=== PATIENT | female | born 1990 | race Caucasian/White ===

== ENCOUNTER 2018-12-18 18:45 | Inpatient (IN) | payer BC ==
[2018-12-18 20:58] VITALS: BMI 21.4
[2018-12-18 21:16] LABS: BASO % 0.2 % (0-2.0); EOS % 0.1 % (0-4.5); HEMATOCRIT 34.7 % (32.4-45.2); HEMOGLOBIN 11.8 GM/dL (10.7-15.3); LYMPH % 12.7 % (8-40); MCH 34.8 pg (25.7-33.7); MEAN CELL VOLUME 102.3 fl (80-96); MEAN PLT VOLUME 8.9 fl (7.5-11.1); MONO % 4.8 % (3.8-10.2); NEUT % 82.2 % (42.8-82.8); PLATELET COUNT 176 K/MM3 (134-434); RBC 3.39 M/mm3 (3.60-5.2); RDW 13.7 % (11.6-15.6); WHITE BLOOD COUNT 8.8 K/mm3 (4.0-10.0)
[2018-12-18 21:29] LABS: INR 0.95 (0.83-1.09); PROTHROMBIN TIME (PATIENT) 11.2 SEC (9.7-13.0)
[2018-12-18 21:32] LABS: ACTIVATED PTT 27.4 SECONDS (25.2-36.5)
[2018-12-18 21:38] LABS: BLOOD UREA NITROGEN 6.8 mg/dL (7-18); CALCIUM 8.6 mg/dL (8.5-10.1); CREATININE 0.7 mg/dL (0.55-1.3); POTASSIUM 3.6 mmol/L (3.5-5.1)
--- NOTE | 2018-12-18 21:59 | HP ---
Past Medical History - Primary Care Physician PCP:: Hong Montes De Oca - Admission Chief Complaint: 28yo P1 with at EGA 40w2d admitted with SROM in spontaneous labor. History of Present Illness: SROM with clear fluid. Vaginal GBS negative. History Source: Patient, Medical Record Limitations to Obtaining History: No Limitations - Past Medical History BLENDING TECHNICIAN: Yes: Migraine Cardiovascular: No: AFIB, Aneurysm, Aortic Insufficiency, Aortic Stenosis, CAD, CHF, Deep Vein Thrombosis, HTN, Hyperlipdemia, OR, Mitral Insufficiency, Mitral Stenosis, Murmur, Pulmonary Hypertension, Other Pulmonary: No: Asthma, Bronchitis, Cancer, COPD, O2 Dependent, Pneumonia, Previously Intubated, Pulmonary Embolus, Pulmonary Fibrosis, Sleep Apnea, Other Gastrointestinal: Yes: GERD, Irritable Bowel Disease Hepatobiliary: No: Cirrhosis, Cholelithiasis, Cholecystitis, Choledocholithiasis , Hepatitis A, Hepatitis B, Hepatitis C, Other Renal/: No: Renal Failure, Renal Inusuff, BPH, Cancer, Hematuria, Hemodialysis , Neurogenic Bladder, Renal Calculi, UTI, Other ...: 2 ...Para: 1 ...Term: 1 ...: 0 ...Spon : 0 ...Induced : 0 ...Multiple Gestation: 0 ...LMP: 03/15/18 ... Weeks Gestation by Dates: 40.2 ...EDC by Dates: 12/20/18 ...EDC by Sono: 12/16/18 Heme/Onc: No: Anemia, B12 Deficiency, Bleeding Disorder, Cancer, Current Chemotherapy, Current Radiation Therapy, Hemochromatosis, Hypercoaguable State, Myeloproliferative Synd, Sickle Cell Disease, Sickle Cell Trait, Thrombocytopenia, Other Infectious Disease: No: AIDS, C-Diff, Herpes Zoster, HIV, MRSA, STD's, Tuberculosis, VREF, Other Psych: No: Addictions, Anxiety, Bipolar, Depression, Panic, Psychosis, Schizophrenia, Other Musculoskeletal: No: Bursitis, Chronic low back pain, Hemiparesis, Hemiplegia, Osteoarthritis, Paraplegia, Other Rheumatology: No: Fibromyalgia, Gout, Lupus, Rheumatoid Arthritis, Sarcoidosis, Vasculitis, Other ENT: No: Allergic Rhinitis, Sinusitis, Other Endocrine: No: Bobby's Disease, [place]'s Disease, Diabetes Insipidus, Diabetes Mellitus, Hyperparathyroidism, Hyperthyroidism, Hypothyroidism, Osteopenia, SIADH, Other Dermatology: No: Basal Cell, Cellulitis, Eczema, Melanoma, Psoriasis, Squamous Cell, Other - Past Surgical History Past Surgical History: Yes: None Hx Myomectomy: No Hx Transabdominal Cerclage: No - Smoking History Smoking history: Never smoked Have you smoked in the past 12 months: No - Alcohol/Substance Use Hx Alcohol Use: No History of Substance Use: reports: None - Social History Usual Living Arrangement: Yes: With Spouse, With Child ADL: Independent History of Recent Travel: No Home Medications - Allergies Allergies/Adverse Reactions: Allergies Allergy/AdvReac Type Severity Reaction Status Date / Time avocado Allergy Verified 12/18/18 20:08 husain flavor Allergy Verified 12/18/18 20:08 nut - unspecified Allergy Verified 12/18/18 20:08 - Home Medications Home Medications: Ambulatory Orders Pnv No.95/Ferrous Fum/Folic AC [ Vitamin Tablet] 1 tab PO DAILY Family Medical History Family History: Unremarkable Review of Systems - Review of Systems Constitutional: reports: Other (contractions mild) Eyes: reports: No Symptoms HENT: reports: No Symptoms Neck: reports: No Symptoms Cardiovascular: reports: No Symptoms Respiratory: reports: No Symptoms Gastrointestinal: reports: No Symptoms Genitourinary: reports: No Symptoms Breasts: reports: No Symptoms Reported Musculoskeletal: reports: No Symptoms Integumentary: reports: No Symptoms Neurological: reports: No Symptoms Endocrine: reports: No Symptoms Hematology/Lymphatic: reports: No Symptoms Psychiatric: reports: No Symptoms Pain Intensity: 2 Physical Exam - Maternity Vital Signs: Vital Signs Temperature 98.3 F 12/18/18 21:11 Pulse Rate 101 H 12/18/18 21:11 Respiratory Rate 20 12/18/18 21:11 Blood Pressure 112/69 12/18/18 21:11 O2 Sat by Pulse Oximetry (%) Constitutional: Yes: Well Nourished, No Distress, Calm Eyes: Yes: WNL, Conjunctiva Clear HENT: Yes: WNL, Atraumatic, Normocephalic Neck: Yes: WNL, Supple, Trachea Midline Cardiovascular: Yes: WNL, Regular Rate and Rhythm Lungs: Clear to auscultation, Normal air movement - Abdominal Exam/OB Fundal Height: 39 Number of Fetuses: Single Presentation: Vertex Contractions: Yes Regularity: Irregular Intensity: Mild Monitor Mode: External Heart Rate (range): 130 Heart Rate Location: Midline Category: I Accelerations: Uniform Decelerations: None - Vaginal Exam/OB Vaginal Bleediing: No Speculum Exam: No Dilatation (cm): 3 Effacement (%): 70 Amniotic Membrane Status: Leaking Nitrazine Test: Positive Amniotic Fluid: Yes: Clear Presentation: Vertex/Position Station: -2 - Physical Exam Musculoskeletal: Yes: WNL Extremities: Yes: WNL Edema: No Integumentary: Yes: WNL Deep Tendon Reflex Grade: Normal +2 ...Motor Strength: WNL Psychiatric: Yes: WNL, Alert, Oriented - Labs Lab Results: CBC, BMP 12/18/18 20:50 12/18/18 20:03 Hemorrhage Risk Assessment - Risk Factors Medium Risk Factors: Yes: None High Risk Factors: Yes: None Risk Score: 1 Risk Level: Medium Risk Imaging - Results Ultrasound: Report Reviewed Assessment/Plan 28yo P1 with at EGA 40w2d admitted with SROM in spontaneous labor. Fetus with Catgery I tracing. Adequate gynecoid pelvimetry. Spont early labor. Contractions are mild and irregular. Plan to augment ctx's with pitocin.
[2018-12-18] MEDS ORDERED: DEXTROSE 5%-LACTATED RINGERS 1,000 ML IV SCH (22:00)
[2018-12-18] MEDS ORDERED: OXYTOCIN 30 UNITS in 0.9% NS 30 UNIT/500 ML INFUS.BAG IVPB ONE (22:12)
[2018-12-18] MEDS ORDERED: ELECTROLYTE-148 SOLN 1,000 ML IV SCH (22:30)
[2018-12-18] MEDS: ELECTROLYTE-148 SOLN 1,000 ML IV SCH (22:30)
[2018-12-18] MEDS ORDERED: OXYTOCIN 30 UNITS in 0.9% NS 30 UNIT/500 ML INFUS.BAG IVPB SCH (22:30)
[2018-12-19] MEDS ORDERED: LIDO 2%/EPI 1:200000 PRESRVFRE (20 ML SDVIAL) ONE
[2018-12-19] MEDS ORDERED: BUPIVACAINE HCL/PF 0.5% (5 MG/ML) 30 ML VIAL IJ ONE
[2018-12-19] MEDS ORDERED: FENTANYL/BUPIVACAINE/NS/PF - PCEA - 50 ML DISP.SYRIN EP ONE (00:04)
[2018-12-19] MEDS ORDERED: NALOXONE HCL 0.4 MG/ML VIAL IVPUSH PRN (00:26)
[2018-12-19] MEDS ORDERED: FENTANYL/BUPIVACAINE/NS/PF - PCEA - 50 ML DISP.SYRIN EP SCH (00:30)
[2018-12-19] MEDS: ELECTROLYTE-148 SOLN 1,000 ML IV SCH (00:40)
[2018-12-19] MEDS ORDERED: OXYTOCIN 20 UNITS in 0.9% NS 20 UNIT/1,000 ML INFUS.BAG IV ONE (01:43)
[2018-12-19] MEDS ORDERED: LIDOCAINE HCL 1% PRESERVATIVE FREE - 30ML VIAL ONE (01:44)
[2018-12-19] MEDS ORDERED: OXYTOCIN 20 UNITS in 0.9% NS 1000 ML INFUS.BAG IV ONE (02:43)
[2018-12-19] MEDS ORDERED: OXYTOCIN 20 UNITS in 0.9% NS 20 UNIT/1,000 ML INFUS.BAG IV SCH (03:00)
[2018-12-19] MEDS ORDERED: ACETAMINOPHEN 325 MG TABLET (FP) PO PRN (03:31)
[2018-12-19] MEDS ORDERED: IBUPROFEN 600 MG TABLET (FP) PO PRN (03:31)
[2018-12-19] MEDS ORDERED: SENNOSIDES/DOCUSATE COMBO (SENNA PLUS) TABLET (UD) PO PRN (03:31)
[2018-12-19] MEDS ORDERED: BENZOCAINE 20% 57 GM BOTTLE TP PRN (03:32)
[2018-12-19] MEDS ORDERED: BISACODYL 10 MG SUPP.RECT RC PRN (03:32)
[2018-12-19] MEDS ORDERED: BENZOCAINE 28 GM HEMORRHOIDAL OINTMENT TP PRN (03:32)
[2018-12-19] MEDS ORDERED: METHYLERGONOVINE MALEATE 0.2 MG/1 ML AMP IM PRN (03:33)
[2018-12-19] MEDS ORDERED: WITCH HAZEL 50% (TUCKS) 40 PAD/JAR PAD TP PRN (03:33)
--- NOTE | 2018-12-19 09:01 | PN ---
Delivery - Delivery Vaginal Delivery: No Problems, Spontaneous Type of Anesthesia: Epidural Episiotomy/Laceration: Vaginal Extension/lac, 1st degree EBL (cc): 350 Delivery, Single - Stages of Labor Date 1st Stage Initiatied: 12/18/18 Time 1st Stage Initiated: 18:00 Date 2nd Stage Initiated: 12/19/18 Time 2nd Stage Initiated: 01:45 Date of Delivery: 12/19/18 Time of Delivery: 01:53 Date Placenta Delivered: 12/19/18 Time Placenta Delivered: 02:00 Placenta: Yes: Spontaneous, Normal Configuration - Condition of Carpet Technician/Typesetting Machine Tender Present: No Gender: Male Weight: 3.005 kg Position: OA Total Hours ROM (Hrs/Mins): [id number] - 1 Minute Total Score: 9 5 Minutes Total Score: 9 - [place] Feeding Plan Initial Plan: Exclusive throughout hospitalization Benefits of Exclusively reinforced: Yes
--- NOTE | 2018-12-20 08:49 | PN ---
Post Progress Note - Subjective Subjective: Patient without acute complaints. Reports tolerating oral intake without nausea or vomiting. Ambulating without dizziness. Denies fevers or chills. Pain well controlled with oral pain medication. without difficulty. Passing flatus. Post Day: 1 Type of Delivery: Vital Signs: Vital Signs Temperature 98.4 F 12/19/18 22:00 Pulse Rate 83 12/19/18 22:00 Respiratory Rate 18 12/19/18 22:00 Blood Pressure 100/59 L 12/19/18 22:00 O2 Sat by Pulse Oximetry (%) 98 12/19/18 02:45 Breast Exam: Yes: Soft Uterus: Yes: Fundus Firm Abdomen/GI: Yes: Abdomen soft, Passing flatus, Tolerating PO Lochia: Yes: Rubra Lochia, amount: Small Extremities: Yes: Calves non-tender Perineum: Yes: Intact Activity: Ambulating - Labs Labs: CBC WBC 8.8 K/mm3 (4.0-10.0) 12/18/18 20:50 RBC 3.39 M/mm3 (3.60-5.2) L 12/18/18 20:50 Hgb 11.8 GM/dL (10.7-15.3) 12/18/18 20:50 Hct 34.7 % (32.4-45.2) D 12/18/18 20:50 MCV 102.3 fl (80-96) H 12/18/18 20:50 MCH 34.8 pg (25.7-33.7) H 12/18/18 20:50 MCHC 34.0 g/dl (32.0-36.0) 12/18/18 20:50 RDW 13.7 % (11.6-15.6) 12/18/18 20:50 Plt Count 176 K/MM3 (134-434) D 12/18/18 20:50 MPV 8.9 fl (7.5-11.1) 12/18/18 20:50 Absolute Neuts (auto) 7.3 K/mm3 (1.5-8.0) 12/18/18 20:50 Neutrophils % 82.2 % (42.8-82.8) 12/18/18 20:50 Lymphocytes % 12.7 % (8-40) 12/18/18 20:50 Monocytes % 4.8 % (3.8-10.2) 12/18/18 20:50 Eosinophils % 0.1 % (0-4.5) 12/18/18 20:50 Basophils % 0.2 % (0-2.0) 12/18/18 20:50 Nucleated RBC % 0 % (0-0) 12/18/18 20:50 Assessment/Plan s/p VSS, Afebrile doing well continue routine care Plan to d/c in am
[2018-12-20 09:22] LABS: BASO % 0.3 % (0-2.0); EOS % 0.7 % (0-4.5); HEMATOCRIT 30.1 % (32.4-45.2); HEMOGLOBIN 10.4 GM/dL (10.7-15.3); LYMPH % 17.3 % (8-40); MCH 35.4 pg (25.7-33.7); MCHC 34.5 g/dl (32.0-36.0); MEAN CELL VOLUME 102.6 fl (80-96); MEAN PLT VOLUME 8.5 fl (7.5-11.1); MONO % 3.1 % (3.8-10.2); NEUT % 78.6 % (42.8-82.8); PLATELET COUNT 135 K/MM3 (134-434); RBC 2.93 M/mm3 (3.60-5.2); RDW 13.8 % (11.6-15.6); WHITE BLOOD COUNT 7.9 K/mm3 (4.0-10.0)
[2018-12-20 23:12] VITALS: TEMP 98
--- NOTE | 2018-12-21 07:39 | PN ---
Post Progress Note - Subjective Subjective: Patient without acute complaints. Reports tolerating oral intake without nausea or vomiting. Ambulating without dizziness. Denies fevers or chills. Pain well controlled with oral pain medication. without difficulty. Passing flatus. Post Day: 2 Type of Delivery: Vital Signs: Vital Signs Temperature 98 F 12/20/18 22:00 Pulse Rate 87 12/20/18 22:00 Respiratory Rate 18 12/20/18 22:00 Blood Pressure 87/56 L 12/20/18 22:00 O2 Sat by Pulse Oximetry (%) 98 12/19/18 02:45 Breast Exam: Yes: Soft Uterus: Yes: Fundus Firm, Fundus below umbilicus Abdomen/GI: Yes: Abdomen soft, Passing flatus, Tolerating PO. No: Abdominal Distention, Tender Extremities: Yes: Calves non-tender. No: Edema Activity: Ambulating - Labs Labs: CBC WBC 7.9 K/mm3 (4.0-10.0) 12/20/18 09:00 RBC 2.93 M/mm3 (3.60-5.2) L 12/20/18 09:00 Hgb 10.4 GM/dL (10.7-15.3) L 12/20/18 09:00 Hct 30.1 % (32.4-45.2) L 12/20/18 09:00 MCV 102.6 fl (80-96) H 12/20/18 09:00 MCH 35.4 pg (25.7-33.7) H 12/20/18 09:00 MCHC 34.5 g/dl (32.0-36.0) 12/20/18 09:00 RDW 13.8 % (11.6-15.6) 12/20/18 09:00 Plt Count 135 K/MM3 (134-434) D 12/20/18 09:00 MPV 8.5 fl (7.5-11.1) 12/20/18 09:00 Absolute Neuts (auto) 6.2 K/mm3 (1.5-8.0) 12/20/18 09:00 Neutrophils % 78.6 % (42.8-82.8) 12/20/18 09:00 Lymphocytes % 17.3 % (8-40) D 12/20/18 09:00 Monocytes % 3.1 % (3.8-10.2) L 12/20/18 09:00 Eosinophils % 0.7 % (0-4.5) D 12/20/18 09:00 Basophils % 0.3 % (0-2.0) 12/20/18 09:00 Nucleated RBC % 0 % (0-0) 12/20/18 09:00 Assessment/Plan 28 yo PPD # 2 s/p , afebrile, vital signs stable, doing well 1. Patient stable for discharge home today. 2. Patient encouraged to contact MD for: - Severe pain not controlled by oral pain medication - Fevers or chills - Nausea or vomiting, intolerance of oral intake 3. Patient to follow up in office in 4-6 weeks for visit
[2018-12-21 09:32] VITALS: BP 107/61; PULSE 81
== END 2018-12-21 10:45 | disposition home or self-care (01) | DRG 807 ==
LOC: JDEL 18:45 → JLDR 19:00 → JDEL 19:04 → UNDOADMIN 19:50 → JLDR 19:50 → J3W 12-19 03:27
PROVIDERS: ADMIT Obstetrics & Gynecology; ATTEND Obstetrics & Gynecology
PROC: 0HQ9XZZ Repair Perineum Skin, External Approach (ICD-10-PCS; principal; 2018-12-19)
PROC: 10E0XZZ Delivery of Products of Conception, External Approach (ICD-10-PCS; 2018-12-19)
DX: O48.0 Post-term pregnancy (principal); Z37.0 Single live birth; O70.0 First degree perineal laceration during delivery; Z3A.40 40 weeks gestation of pregnancy
CPT/HCPCS: 36415; 59409; 80048; 85025; 85610; 85730; 86593; 86850; 86900; 86901; 87389

== ENCOUNTER 2020-01-12 11:38 | Emergency (ER) | payer BC | END 2020-01-12 13:02 | disposition home or self-care (01) | LOC: JVIRT 11:38 | DX: Z03.818 Encounter for observation for suspected exposure to other biological agents ruled out (principal) | CPT/HCPCS: C9803; Q3014-GT; U0003 ==

== ENCOUNTER 2020-01-20 15:39 | Emergency (ER) | payer BC | END 2020-01-20 16:13 | disposition home or self-care (01) | LOC: JVIRT 15:39 | DX: Z03.818 Encounter for observation for suspected exposure to other biological agents ruled out (principal) | CPT/HCPCS: C9803; G2012-GT; U0003 ==

== ENCOUNTER 2020-04-26 11:32 | Emergency (ER) | payer BC | END 2020-04-26 15:02 | disposition home or self-care (01) | LOC: JVIRT 11:32 | DX: Z20.822 Contact with and (suspected) exposure to COVID-19 (principal) | CPT/HCPCS: C9803; G2251-GT; U0003 ==

== ENCOUNTER 2020-10-17 07:30 | Inpatient (IN) | payer BC ==
[2020-10-17] MEDS ORDERED: DEXTROSE 5%-LACTATED RINGERS 1,000 ML IV SCH (09:15)
[2020-10-17] MEDS ORDERED: OXYTOCIN 30 UNITS in 0.9% NS 30 UNIT/500 ML INFUS.BAG IVPB SCH (09:15)
[2020-10-17 09:31] VITALS: BMI 22.6
[2020-10-17] MEDS ORDERED: OXYTOCIN 30 UNITS in 0.9% NS 30 UNIT/500 ML INFUS.BAG IVPB ONE (09:47)
[2020-10-17 10:16] LABS: BASO % 0.3 % (0-2.0); EOS % 0.1 % (0-4.5); HEMATOCRIT 28.3 % (32.4-45.2); HEMOGLOBIN 9.8 GM/dL (10.7-15.3); LYMPH % 16.7 % (8-40); MCH 34.1 pg (25.7-33.7); MCHC 34.5 g/dl (32.0-36.0); MEAN CELL VOLUME 98.6 fl (80-96); MEAN PLT VOLUME 9.1 fl (7.5-11.1); MONO % 6.2 % (3.8-10.2); NEUT % 76.7 % (42.8-82.8); PLATELET COUNT 150 10^3/uL (134-434); RBC 2.87 M/mm3 (3.60-5.2); RDW 15.3 % (11.6-15.6); WHITE BLOOD COUNT 4.9 K/mm3 (4.0-10.0)
[2020-10-17 10:21] LABS: PROTHROMBIN TIME (PATIENT) 12.1 SEC (9.7-13.0)
[2020-10-17 10:24] LABS: ACTIVATED PTT 25.7 SECONDS (25.2-36.5)
[2020-10-17 10:38] LABS: CALCIUM 7.8 mg/dL (8.5-10.1)
[2020-10-17 10:39] LABS: BLOOD UREA NITROGEN 4.8 mg/dL (7-18)
[2020-10-17 10:42] LABS: CREATININE 0.5 mg/dL (0.55-1.3)
[2020-10-17 11:48] LABS: HIV INTERPRETATION NEGATIVE (NEGATIVE)
[2020-10-17] MEDS ORDERED: PCA PUMP NR ONE (14:07)
[2020-10-17] MEDS ORDERED: FENTANYL/BUPIVACAINE/NS/PF - PCEA - 50 ML DISP.SYRIN EP ONE (14:07)
[2020-10-17] MEDS: FENTANYL/BUPIVACAINE/NS/PF - PCEA - 50 ML DISP.SYRIN EP SCH (14:55)
[2020-10-17] MEDS ORDERED: NALOXONE HCL 0.4 MG/ML VIAL IVPUSH PRN (16:08)
[2020-10-17] MEDS ORDERED: OXYTOCIN 20 UNITS in 0.9% NS 20 UNIT/1,000 ML INFUS.BAG IV ONE (18:10)
[2020-10-17] MEDS ORDERED: LIDOCAINE HCL 1% PRESERVATIVE FREE - 30ML VIAL ONE (18:10)
[2020-10-17] MEDS ORDERED: BENZOCAINE 28 GM HEMORRHOIDAL OINTMENT TP PRN (18:44)
[2020-10-17] MEDS ORDERED: ACETAMINOPHEN 325 MG TABLET (FP) PO PRN (18:44)
[2020-10-17] MEDS ORDERED: BISACODYL 10 MG SUPP.RECT RC PRN (18:44)
[2020-10-17] MEDS ORDERED: WITCH HAZEL 50% (TUCKS) 40 PAD/JAR PAD TP PRN (18:44)
[2020-10-17] MEDS ORDERED: METHYLERGONOVINE MALEATE 0.2 MG/1 ML AMP IM PRN (18:44)
[2020-10-17] MEDS: OXYTOCIN 20 UNITS in 0.9% NS 20 UNIT/1,000 ML INFUS.BAG IV SCH (19:00)
[2020-10-17 19:51] LABS: CORD BASE EXCESS -1.6 mmol/L (0-2); CORD HCO3 22.8 mmHg (20-29); CORD PCO2 37.5 mmHg (30-78); CORD pH 7.401 (7.14-7.44)
[2020-10-17 19:54] LABS: CORD BASE EXCESS -6.2 mmol/L (0-2); CORD HCO3 20.3 mmHg (20-29); CORD PCO2 43.6 mmHg (30-78); CORD pH 7.285 (7.14-7.44)
[2020-10-17] MEDS: BENZOCAINE 20% 57 GM BOTTLE TP PRN (23:48)
[2020-10-17] MEDS: IBUPROFEN 600 MG TABLET (FP) PO PRN (23:48)
[2020-10-18] MEDS: BENZOCAINE 20% 57 GM BOTTLE TP PRN (00:32)
[2020-10-18 10:01] LABS: BASO % 0.3 % (0-2.0); EOS % 0.6 % (0-4.5); HEMATOCRIT 28.2 % (32.4-45.2); HEMOGLOBIN 9.8 GM/dL (10.7-15.3); LYMPH % 15.4 % (8-40); MCH 34.2 pg (25.7-33.7); MCHC 34.8 g/dl (32.0-36.0); MEAN CELL VOLUME 98.1 fl (80-96); MEAN PLT VOLUME 8.5 fl (7.5-11.1); MONO % 4.7 % (3.8-10.2); PLATELET COUNT 119 10^3/uL (134-434); RBC 2.87 M/mm3 (3.60-5.2); RDW 15.6 % (11.6-15.6); WHITE BLOOD COUNT 5.4 K/mm3 (4.0-10.0)
[2020-10-18] MEDS: PRENATAL VITAMINS W/ FOLIC ACID TABLET (FP) PO SCH (11:06)
[2020-10-18] MEDS: OXYTOCIN 20 UNITS in 0.9% NS 20 UNIT/1,000 ML INFUS.BAG IV SCH (18:47)
[2020-10-18] MEDS: FENTANYL/BUPIVACAINE/NS/PF - PCEA - 50 ML DISP.SYRIN EP SCH (19:20)
[2020-10-18] MEDS ORDERED: SENNOSIDES/DOCUSATE COMBO (SENNA PLUS) TABLET (UD) PO PRN (22:00)
[2020-10-19] MEDS: IBUPROFEN 600 MG TABLET (FP) PO PRN (04:14)
[2020-10-19] MEDS: PRENATAL VITAMINS W/ FOLIC ACID TABLET (FP) PO SCH (09:41)
[2020-10-19 10:50] VITALS: BP 98/63; PULSE 983; TEMP 98.3
== END 2020-10-19 10:50 | disposition home or self-care (01) | DRG 807 ==
LOC: JLDR 07:30 → J3W 10-18 00:03
PROVIDERS: ADMIT Obstetrics & Gynecology; ATTEND Obstetrics & Gynecology
PROC: 10E0XZZ Delivery of Products of Conception, External Approach (ICD-10-PCS; principal; 2020-10-17)
PROC: 0W8NXZZ Division of Female Perineum, External Approach (ICD-10-PCS; 2020-10-17)
PROC: 10907ZC Drainage of Amniotic Fluid, Therapeutic from Products of Conception, Via Natural or Artificial Opening (ICD-10-PCS; 2020-10-17)
PROC: 3E033VJ Introduction of Other Hormone into Peripheral Vein, Percutaneous Approach (ICD-10-PCS; 2020-10-17)
DX: O48.0 Post-term pregnancy (principal); Z37.0 Single live birth; O70.1 Second degree perineal laceration during delivery; Z3A.40 40 weeks gestation of pregnancy
CPT/HCPCS: 36415; 36600; 59409; 80048; 82803; 85025; 85610; 85730; 86780; 86850; 86900; 86901; 87389; C9803; U0003; U0005